=== PATIENT | male | born 1940 | race Caucasian/White ===

== ENCOUNTER 2021-01-27 11:53 | Emergency (ER) | payer MEDICARE ==
[~2021-01-27] VITALS: Ht 185.4 cm; Wt 110.0 kg
[2021-01-27] MEDS ORDERED: normal saline 1000ml 1,000 ML IV ONE (12:10)
--- NOTE | 2021-01-27 12:18 | NUR ---
pt said Dr Yao had him stop carvedilol 25mg and metformin end of October for "low blood pressure",
[2021-01-27 12:38] VITALS: BP 112/59
--- NOTE | 2021-01-27 12:38 | NUR ---
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
[2021-01-27] MEDS ORDERED: SIMV-42 PO (12:53)
[2021-01-27] MEDS ORDERED: LISI40TA13 PO (12:53)
[2021-01-27] MEDS ORDERED: HYDR25TA4 PO (12:53)
[2021-01-27] MEDS ORDERED: TERA5CAP4 PO (12:53)
[2021-01-27] MEDS ORDERED: AMLO5TAB16 PO (12:53)
[2021-01-27] MEDS ORDERED: PYRI60TA PO (12:53)
[2021-01-27] MEDS ORDERED: GLIM4TAB7 PO (12:53)
[2021-01-27 13:16] LABS: BASOPHILS % (AUTO) 0.1 % (0-1); EOSINOPHILS % (AUTO) 0.1 % (0-6); HEMATOCRIT 34.3 % (42.0-52.0); HEMOGLOBIN 11.5 g/dl (14.0-17.9); LYMPHOCYTES # (AUTO) 0.2 X10'3 (1.1-4.8); MEAN CORPUSCULAR HEMOGLOBIN 28.7 PG (27.0-31.0); MEAN CORPUSCULAR HGB CONC 33.4 g/dL (33.0-36.5); MEAN CORPUSCULAR VOLUME 85.9 FL (78-98); MEAN PLATELET VOLUME 9.4 FL (7.4-10.4); MONOCYTES # (AUTO) 0.8 X10'3 (0-0.9); MONOCYTES % (AUTO) 5.3 % (2-12); NEUTROPHILS # (AUTO) 14.5 X10'3 (1.8-7.7); NEUTROPHILS % (AUTO) 93.5 % (42-75); PLATELET COUNT 158 X10'3 (140-440); RED BLOOD COUNT 3.99 X10'6 (4.70-6.10); RED CELL DISTRIBUTION WIDTH 15.4 % (11.5-14.5); WHITE BLOOD COUNT 15.5 X10'3 (4.5-11.0)
[2021-01-27 13:41] LABS: ALANINE AMINOTRANSFERASE 17 U/L (12-78); ALBUMIN 3.3 G/DL (3.4-5.0); ALBUMIN/GLOBULIN RATIO 0.9 (1.1-1.5); ALKALINE PHOSPHATASE 85 IU/L (46-116); ANION GAP 12 (8-16); ASPARTATE AMINO TRANSFERASE 19 U/L (10-37); BILIRUBIN,TOTAL 0.7 MG/DL (0.1-1.0); BLOOD UREA NITROGEN 18 MG/DL (7-18); BUN/CREATININE RATIO 14.9 (5.4-32.0); CALCIUM 8.5 MG/DL (8.5-10.1); CHLORIDE 106 MMOL/L (99-107); CREATININE 1.21 MG/DL (0.60-1.10); GLUCOSE 127 MG/DL (70-104); POTASSIUM 3.7 MMOL/L (3.5-5.1); SODIUM 143 MMOL/L (135-145); TOTAL CARBON DIOXIDE 25.2 MMOL/L (24-32); TOTAL PROTEIN 7.1 G/DL (6.4-8.2); TROPONIN I 0.04 NG/ML (0.0-0.05); eGFR 58 ML/MIN
[2021-01-27] MEDS ORDERED: CEPH-585 PO (14:44)
== END 2021-01-27 14:55 | disposition left against medical advice (07) ==
LOC: ER 11:54
DX: R55 Syncope and collapse (principal); R30.9 Painful micturition, unspecified; R53.1 Weakness; I25.10 Atherosclerotic heart disease of native coronary artery without angina pectoris; Z86.73 Personal history of transient ischemic attack (TIA), and cerebral infarction without residual deficits; Z60.2 Problems related to living alone; Z79.2 Long term (current) use of antibiotics; Z79.899 Other long term (current) drug therapy
CPT/HCPCS: 36415; 71045; 80053; 83605; 84484; 85025; 93005; 99285; J7030

== ENCOUNTER 2021-02-06 12:56 | Outpatient (CLI) | payer MEDICARE ==
[~2021-02-06 12:56] MED LIST: AMLO5TAB16 PO; CEPH-585 PO; GLIM4TAB7 PO; HYDR25TA4 PO; LISI40TA13 PO; PYRI60TA PO; SIMV-42 PO; TERA5CAP4 PO
== END 2021-02-06 23:59 | disposition home or self-care (01) ==
LOC: RAD 12:56
PROVIDERS: ATTEND Psychiatry & Neurology Neurology
DX: R13.12 Dysphagia, oropharyngeal phase (principal)
CPT/HCPCS: 74230